=== PATIENT | female | born 2000 | race Caucasian/White ===

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

== ENCOUNTER 2022-04-26 13:38 | Emergency (ER) | payer OTHER ==
[2022-04-26 13:56] VITALS: BP 129/83; PULSE 94; O2SAT 94
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
== END 2022-04-26 14:14 | disposition home or self-care (01) ==
LOC: ED 13:38
DX: H01.004 Unspecified blepharitis left upper eyelid (principal)
CPT/HCPCS: 99281